=== PATIENT | male | born 1980 | race Caucasian/White ===

== ENCOUNTER 2017-04-28 03:09 | Emergency (ER) | payer BC, OTHER ==
--- NOTE | 2017-04-28 08:59 | ULT ---
PRELIMINARY REPORT/[facility]/EMERGENCY AFTER HOURS PROCEDURE: EXAM: US Duplex Right Lower Extremity Veins CLINICAL HISTORY: 36 years old, male; Pain; Leg, lower; Right; Patient HX: Rt calf pain after 15 hrs flight. TECHNIQUE: Real-time ultrasound scan of the veins of the right lower extremity with color Doppler flow, spectral waveform analysis and compression. COMPARISON: No relevant prior studies available. FINDINGS: Deep veins: Unremarkable. No DVT in the visualized common femoral, femoral, proximal deep femoral or popliteal veins. The veins demonstrate normal color flow, are normally compressible, with normal phas ic flow and/or augmentation response. Superficial veins: Unremarkable. No thrombus in the visualized great saphenous vein. Soft tissues: No acute findings. No popliteal cyst. IMPRESSION: Normal right lower extremity duplex venous ultrasound. Thank you for allowing us to participate in the care of your patient. Dictated and Authenticated by: Carlton Hernández MD 04/28/2017 4:49 AM Central Time ([place] & [place]) FINAL REPORT RIGHT LOWER EXTREMITY VENOUS ULTRASOUND: FINDINGS/IMPRESSION: I agree with the findings and impression given in the preliminary report by AD physician. No eviden ce of right lower extremity DVT. POS: [facility]
== END 2017-04-28 05:10 | disposition home or self-care (01) ==
LOC: ERS 03:09
DX: M79.661 Pain in right lower leg (principal)